=== PATIENT | female | born 1965 | race Caucasian/White ===

== ENCOUNTER 2019-04-02 07:14 | Day surgery (SDC) | payer OTHER ==
[~2019-04-02] VITALS: Ht 157.5 cm; Wt 69.5 kg
[2019-04-02 08:35] VITALS: Ht 157.5 cm; Wt 69.5 kg
[2019-04-02] MEDS ORDERED: BASAGLAR KWIKPEN (08:50)
[2019-04-02] MEDS ORDERED: ASPIRIN (08:50)
[2019-04-02] MEDS ORDERED: LISINOPRIL (08:51)
[2019-04-02] MEDS ORDERED: PRAVASTATIN (08:52)
[2019-04-02 09:28] VITALS: BP 130/74; PULSE 73; RESP 18
--- NOTE | 2019-04-02 09:30 | PREAC ---
Date/Time of Note Date/Time of Note DATE: 04/02/19 TIME: 09: Anesthesia Eval and Record Evaluation Time Pre-Procedure Interview DATE: 04/02/19 TIME: : Age 53 Sex female NPO: 8 hrs Preoperative diagnosis GERD/screening Planned procedure EGD/Colonoscopy Past Medical History Past Medical History: Includes Cardio: HTN, Dyslipidemia Endo: Diabetes Surgery & Anesthesia Issues No known issue (hysterectomy, appe, csec) Meds Anticoagulation: No Beta Panda within 24 hr: No Reason Beta Panda not given: Pt. not on B-Panda Reported Medications [Pravastatin] No Conflict Check 04/02/19 [Lisinopril] No Conflict Check 04/02/19 [Basaglar Kwikpen] No Conflict Check 04/02/19 [Aspirin] No Conflict Check 04/02/19 Meds reviewed: Yes Allergies Coded Allergies: No Known Allergy (Unverified , 04/02/19) Allergies Reviewed: Yes Labs/Studies Labs Reviewed: Reviewed by anesthesiologist (BG 306 - will monitor) test: Negative Pre-procedure Exam Airway: Adequate mouth opening, Adequate thyromental dist Mallampati: Mallampati II Teeth: Normal (no lower teeth) Lung: Normal Heart: Normal ASA Physical Status ASA physical status: 2 Emergency: None Planned Anesthetic General/MAC: MAC Pre-operative Attestations Prior to commencing anesthesia and surgery, the patient was re-evaluated, there was verification of: *The patient's identity *The results of appropriate recent lab work and preoperative vital signs *The above evaluation not changing prior to induction *Anesthetic plan, risk benefits, alternative and complications discussed with patient/family; questions answered; patient/family understands, accepts and wishes to proceed. Process Engineering Intern used CASSIUS LEUNG April 02, 2019 09:30
[2019-04-02] MEDS ORDERED: LIDOCAINE 2% (SDV) 5 ML INJ ONE (09:31)
[2019-04-02] MEDS ORDERED: PROPOFOL 40 ML ONE (09:31)
[2019-04-02] MEDS ORDERED: ONDANSETRON 4 MG INJ IV PRN ×2 (10:30→11:30)
[2019-04-02] MEDS ORDERED: INSULIN ASPART [NOVOLOG] 3 ML PEN SC ONE (10:30)
[2019-04-02 10:57] VITALS: BP 124/72; PULSE 85; RESP 20
--- NOTE | 2019-04-02 11:09 | PAC ---
Date/Time of Note Date/Time of Note DATE: 04/02/19 TIME: 11:09 Post-Anesthesia Notes Post-Anesthesia Note Last documented vital signs Vital Signs Date Temp Pulse Resp B/P (MAP) Pulse Ox O2 O2 Flow FiO2 Time Delivery Rate 04/02/19 85 20 124/72 100 Room Air 10:57 (89) 04/02/19 97.4 09:28 Activity: WNL Respiratory function: WNL Cardiovascular function: WNL Mental status: Baseline Pain reasonably controlled: Yes Hydration appropriate: Yes Nausea/Vomiting absent: Yes Comments BP: 124/72 HR: 75 RR: 15 T: 98 Sao2: 99% RADHA LI MD April 02, 2019 11:09
[2019-04-02] MEDS ORDERED: ONDANSETRON 4 MG INJ ONE (11:11)
[2019-04-02] MEDS ORDERED: PROPOFOL 20 ML ONE (11:15)
[2019-04-02] MEDS ORDERED: ONDANSETRON 4 MG TAB PO ONE (11:30)
== END 2019-04-02 13:24 | disposition home or self-care (01) ==
LOC: GIL 07:14
PROVIDERS: ATTEND Internal Medicine Gastroenterology
DX: Z12.11 Encounter for screening for malignant neoplasm of colon (principal); K64.1 Second degree hemorrhoids; K20.9 Esophagitis, unspecified; I10 Essential (primary) hypertension; E11.9 Type 2 diabetes mellitus without complications; Z79.82 Long term (current) use of aspirin
CPT/HCPCS: 43239; 45378; 82962; 88305; 88312; J1815; J2405; Z7610